=== PATIENT | male | born 1935 | race Caucasian/White ===

== ENCOUNTER 2016-09-22 08:01 | Inpatient (IN) | payer OTHER ==
[~2016-09-22] VITALS: Ht 189.2 cm; Wt 105.2 kg
[2016-09-22 09:15] VITALS: BP 138/71
[2016-09-22] MEDS ORDERED: SENN-6 PO (10:26)
[2016-09-22] MEDS ORDERED: POTA20TA82 PO (10:26)
[2016-09-22] MEDS ORDERED: CARV3.122 PO (10:26)
[2016-09-22] MEDS ORDERED: ASPI-482 PO (10:26)
[2016-09-22] MEDS ORDERED: POLY17PO3 PO (10:26)
[2016-09-22] MEDS ORDERED: SPIR25TA3 PO (10:26)
[2016-09-22] MEDS ORDERED: IPRA4AER IH (10:26)
[2016-09-22] MEDS ORDERED: WARF5TAB7 PO ×4 (10:26)
[2016-09-22] MEDS ORDERED: CRESTOR20 MG PO (10:26)
[2016-09-22] MEDS ORDERED: CHOL5000 PO (10:26)
[2016-09-22] MEDS ORDERED: LACT1TAB11 PO (10:26)
[2016-09-22] MEDS ORDERED: AMMO225L5 TP (10:26)
[2016-09-22] MEDS ORDERED: ACET325T9 PO (10:26)
[2016-09-22] MEDS ORDERED: CARB1DRO12 OP (10:26)
[2016-09-22] MEDS ORDERED: CHLO473M MM (10:26)
[2016-09-22] MEDS ORDERED: MELA3TAB PO (10:26)
[2016-09-22] MEDS ORDERED: PRAM56OI TP (10:26)
[2016-09-22] MEDS ORDERED: FINA5TAB4 PO (10:26)
[2016-09-22] MEDS ORDERED: ESCI5TAB24 PO (10:26)
[2016-09-22] MEDS ORDERED: FURO40TA4 PO ×2 (10:26)
[2016-09-22 11:00] VITALS: BP 129/66
[2016-09-22] MEDS ORDERED: MORPHINE SULFATE 2 MG/ML DISP.SYRIN. IV PRN (14:00)
[2016-09-22] MEDS ORDERED: 0.9 % SODIUM CHLORIDE 10 ML DISP.SYRIN. IV PRN (14:00)
[2016-09-22] MEDS ORDERED: PRAMOXINE 1% RECTAL FOAM 15GM CAN. TP PRN (14:15)
[2016-09-22] MEDS ORDERED: POLYVINYL ALCOHOL 1.4% OPHTH SOLUTION 15ML BOTTLE. OU PRN (14:15)
[2016-09-22] MEDS: AMMONIUM LACTATE 12% TP SCH (14:15)
[2016-09-22 15:00] VITALS: BP 115/54
[2016-09-22] MEDS: METOCLOPRAMIDE HCL 10 MG/2 ML VIAL. IV SCH ×2 (15:23→22:12)
[2016-09-22] MEDS: FUROSEMIDE 20 MG/2 ML VIAL IVP SCH (15:23)
[2016-09-22] MEDS: ENOXAPARIN ** NOTE DOSE ** SYRINGE SQ SCH ×2 (15:23→20:41)
[2016-09-22] MEDS: POTASSIUM CL 20MEQ-0.45% NACL 1,000 ML IV SCH (15:24)
[2016-09-22 15:39] LABS: BASO % 1 % (0-3); EOS % 1 % (0-3); HEMATOCRIT 37.7 % (39.0-53.0); HEMOGLOBIN 12.3 g/dL (13.0-17.5); LYMPH % 13 % (24-48); MEAN CORPUSCULAR HEMOGLOBIN 28 pg (25-35); MEAN CORPUSCULAR HGB CONC 33 g/dL (31-37); MEAN CORPUSCULAR VOLUME 84 fL (79-100); MONO % 16 % (0-9); NEUT % 69 % (31-73); PLATELET COUNT 196 x10^3/uL (140-400); RED BLOOD COUNT 4.46 x10^6/uL (4.30-5.70); RED CELL DISTRIBUTION WIDTH 18.3 % (11.5-14.5); WHITE BLOOD COUNT 7.7 x10^3/uL (4.0-11.0)
[2016-09-22 16:13] LABS: ALBUMIN 3.4 g/dL (3.4-5.0); CALCIUM 9.6 mg/dL (8.5-10.1); CREATININE 0.9 mg/dL (0.7-1.3); GFR 81.2; MAGNESIUM 2.1 mg/dL (1.8-2.4); POTASSIUM 3.8 mmol/L (3.5-5.1); TOTAL BILIRUBIN 1.1 mg/dL (0.2-1.0); TOTAL PROTEIN 6.9 g/dL (6.4-8.2)
--- NOTE | 2016-09-22 16:15 | HP ---
ADMIT DATE: 09/22/2016 CHIEF COMPLAINT: Small-bowel obstruction. HISTORY OF PRESENT ILLNESS: The patient is an 81-year-old gentleman who recently actually had been admitted at for a minimally invasive valve replacement complicated by CHF and other issues of stretching the hospitalization to several months. He has been doing well at home until this morning, in the wee hours, he actually presented with a severe abdominal pain in the periumbilical to the left lower quadrant area. The pain was so severe. He could not sit. He reports it as cramping. He finally called his daughter who took him to the [facility] The CT there revealed at least partial small-bowel obstruction and he was therefore referred to this hospital for a surgical followup. The patient relates that he did not eat anything unusual. He does have an abdominal history of diverticulitis, status post partial colectomy as well as hernia mesh repair for an umbilical hernia. He denies any recent fevers or chills. Denies any diarrhea. He did have some nausea and no emesis. Abdominal pain now is much improved, but still present. PAST MEDICAL HISTORY: (? Mitral) valve replacement last year at , minimally invasive CHF. The patient denies any history of heart attack or stent placements. Hypertension, hyperlipidemia, he is on Coumadin since valve replacement. PAST SURGICAL HISTORY: Partial colectomy for diverticulitis, hernia repair, foot surgery after traumatic muscle rupture. FAMILY HISTORY: Positive for heart disease in father. SOCIAL HISTORY: Lives with his . Quit smoking 9 months ago and accumulated a 95-mpmq-[id number] history. No alcohol or drug use. ALLERGIES: BACITRACIN, LISINOPRIL, NEOMYCIN, POLYMYXIN. MEDICATIONS: MAR reviewed. The patient currently n.p.o. REVIEW OF SYSTEMS: As per HPI. Abdominal pain actually has significantly improved. Did have a bowel movement yesterday, has not had any flatus since the pain started. The rest of organ system review was negative. PHYSICAL EXAMINATION: VITAL SIGNS: From today show a blood pressure of 138/71, heart rate of 79, respiratory rate at 20. He is afebrile. GENERAL: This is an 81-year-old well-nourished gentleman, alert and oriented, in no acute distress. HEENT: Shows no scleral icterus. NECK: Supple. LUNGS: Clear anteriorly. HEART: Has regular rate and rhythm without any murmurs. ABDOMEN: Obese, positive bowel sounds, mild tenderness to palpation in the periumbilical to the left lower quadrant area. No masses palpable. EXTREMITIES: Show trace edema. No clubbing or cyanosis. SKIN: Warm, soft and dry. Chronic venous stasis changes, mild in both lower extremities. LABORATORY DATA: Pending. ASSESSMENT AND PLAN: The patient is an 81-year-old gentleman who presented to an outlying facility with at least partial small-bowel obstruction by a clinical exam as well as radiographic findings. NG has been placed since. He feels much improved. I discussed with him and his daughter that we would await further development with bowel rest. He will be started on IV fluids to that end. This will have to be monitored closely, given his history of CHF. We will switch Lasix to IV rather than p.o. As soon as we have indications that he has adequate movement in his bowel, we will try and discontinue the NG tube. We will await other clinical signs including flatus and/or bowel movement. He does have a significant recent heart history, but details are unknown. We will try and get records from . Continue home medications as possible switch essential to IV. The patient is on oral anticoagulation since his heart surgery, presumably for valve placement and CHF. We will switch to Lovenox therapeutic doses for now. TONO CANDELARIO MD DR: CARROLL/nts JOB#: [id number] / [id number] TEGAN
[2016-09-22] MEDS: IPRATRPIUM/ALBUTEROL 0.5/2.5MG 3 ML NEBU. NEB SCH ×2 (16:26→20:05)
[2016-09-22] MEDS: ANTI-COAG MONITOR BY PHARMACY. MC PRN (16:45)
[2016-09-22] MEDS ORDERED: NON FORMULARY ITEM (Ipratropium/Albuterol Sulfate (Combivent Respimat Inhal) 1 INH) IH SCH (17:00)
[2016-09-22] MEDS: METOPROLOL TARTRATE 5 MG/5 ML VIAL. IVP SCH (17:31)
[2016-09-22 19:00] VITALS: BP 125/64
[2016-09-22] MEDS: CHLORHEXIDINE 0.12% 15 ML MOUTHWASH. MM SCH (20:41)
[2016-09-22 23:00] VITALS: BP 127/72
[2016-09-23] VITALS (7 sets, daily range): BP systolic 121–147; BP diastolic 59–72
[2016-09-23] MEDS: METOPROLOL TARTRATE 5 MG/5 ML VIAL. IVP SCH ×2 (00:26→06:27)
[2016-09-23] MEDS: POTASSIUM CL 20MEQ-0.45% NACL 1,000 ML IV SCH ×2 (00:27→09:51)
[2016-09-23] MEDS: METOCLOPRAMIDE HCL 10 MG/2 ML VIAL. IV SCH ×3 (06:27→21:40)
[2016-09-23] MEDS: IPRATRPIUM/ALBUTEROL 0.5/2.5MG 3 ML NEBU. NEB SCH ×4 (07:22→18:09)
[2016-09-23 08:56] LABS: BASO % 1 % (0-3); EOS % 4 % (0-3); HEMATOCRIT 38.1 % (39.0-53.0); HEMOGLOBIN 12.5 g/dL (13.0-17.5); LYMPH # 1.7 x10^3/uL (1.0-4.8); LYMPH % 24 % (24-48); MEAN CORPUSCULAR HEMOGLOBIN 28 pg (25-35); MEAN CORPUSCULAR HGB CONC 33 g/dL (31-37); MEAN CORPUSCULAR VOLUME 85 fL (79-100); MONO % 12 % (0-9); NEUT % 60 % (31-73); PLATELET COUNT 178 x10^3/uL (140-400); RED BLOOD COUNT 4.48 x10^6/uL (4.30-5.70); RED CELL DISTRIBUTION WIDTH 18.4 % (11.5-14.5); WHITE BLOOD COUNT 7.3 x10^3/uL (4.0-11.0)
[2016-09-23 09:09] LABS: INR 1.7 (0.8-1.1); PROTHROMBIN TIME PATIENT 18.9 SEC (11.7-14.0)
[2016-09-23] MEDS: FUROSEMIDE 20 MG/2 ML VIAL IVP SCH (09:29)
[2016-09-23] MEDS: CHLORHEXIDINE 0.12% 15 ML MOUTHWASH. MM SCH (09:29)
[2016-09-23] MEDS: AMMONIUM LACTATE 12% TP SCH (09:29)
[2016-09-23] MEDS: ENOXAPARIN ** NOTE DOSE ** SYRINGE SQ SCH ×2 (09:30→21:40)
[2016-09-23 10:41] LABS: CREATININE 0.8 mg/dL (0.7-1.3); POTASSIUM 3.7 mmol/L (3.5-5.1)
[2016-09-23] MEDS: IV NORMAL SALINE 1000ML BAG 1,000 ML IV SCH (11:23)
[2016-09-23] MEDS: ANTI-COAG MONITOR BY PHARMACY. MC PRN (12:17)
--- NOTE | 2016-09-23 12:36 | PDOC ---
PROGRESS NOTES Chief Complaint Chief Complaint CC: Abd pain 1. Small bowel obstruction 2. H/o diverticulitis - s/p partial colectomy 3. s/p umbilical hernia repair 4. CHF 5. Mitral valve replacement 6. HTN 7. HLD History of Present Illness History of Present Illness Pt sitting in chair NG placed and clamped - will discontinue today Pt had BM yesterday Has been passing gas Pt says his abd pain has subsided Pt complained of IVF causing burning sensation - will from KCl/NaCl to NS VSS DW RN Vitals Vitals Vital Signs Date Time Temp Pulse Resp B/P Pulse Ox O2 Delivery O2 Flow Rate FiO2 09/23/16 12:00 95 Room Air 09/23/16 11:00 97.7 88 20 146/67 97.7 Physical Exam General: Alert, Oriented X3 Heart: Normal S1, Normal S2 Lungs: Clear, Other (No wheezing) Abdomen: Soft, No tenderness Extremities: No clubbing, Normal pulses Skin: No rashes, No breakdown Labs LABS Laboratory Tests Test 09/22/16 15:30 09/22/16 20:30 09/23/16 07:34 09/23/16 07:54 White Blood Count 7.7x10^3/uL (4.0-11.0) 7.3x10^3/uL (4.0-11.0) Red Blood Count 4.46x10^6/uL (4.30-5.70) 4.48x10^6/uL (4.30-5.70) Hemoglobin 12.3g/dL (13.0-17.5) 12.5g/dL (13.0-17.5) Hematocrit 37.7% (39.0-53.0) 38.1% (39.0-53.0) Mean Corpuscular Volume 84fL (79-100) 85fL (79-100) Mean Corpuscular Hemoglobin 28pg (25-35) 28pg (25-35) Mean Corpuscular Hemoglobin Concent 33g/dL (31-37) 33g/dL (31-37) Red Cell Distribution Width 18.3% (11.5-14.5) 18.4% (11.5-14.5) Platelet Count 196x10^3/uL (140-400) 178x10^3/uL (140-400) Neutrophils (%) (Auto) 69% (31-73) 60% (31-73) Lymphocytes (%) (Auto) 13% (24-48) 24% (24-48) Monocytes (%) (Auto) 16% (0-9) 12% (0-9) Eosinophils (%) (Auto) 1% (0-3) 4% (0-3) Basophils (%) (Auto) 1% (0-3) 1% (0-3) Neutrophils # (Auto) 5.3x10^3uL (1.8-7.7) 4.4x10^3uL (1.8-7.7) Lymphocytes # (Auto) 1.0x10^3/uL (1.0-4.8) 1.7x10^3/uL (1.0-4.8) Monocytes # (Auto) 1.2x10^3/uL (0.0-1.1) 0.9x10^3/uL (0.0-1.1) Eosinophils # (Auto) 0.1x10^3/uL (0.0-0.7) 0.3x10^3/uL (0.0-0.7) Basophils # (Auto) 0.0x10^3/uL (0.0-0.2) 0.0x10^3/uL (0.0-0.2) Sodium Level 142mmol/L (136-145) 141mmol/L (136-145) Potassium Level 3.8mmol/L (3.5-5.1) 3.7mmol/L (3.5-5.1) Chloride Level 103mmol/L (98-107) 104mmol/L (98-107) Carbon Dioxide Level 32mmol/L (21-32) 29mmol/L (21-32) Anion Gap 7 (6-14) 8 (6-14) Blood Urea Nitrogen 20mg/dL (8-26) 18mg/dL (8-26) Creatinine 0.9mg/dL (0.7-1.3) 0.8mg/dL (0.7-1.3) Estimated GFR (Cockcroft-Gault) 81.2 93.0 BUN/Creatinine Ratio 22 (6-20) Glucose Level 127mg/dL (70-99) 123mg/dL (70-99) Calcium Level 9.6mg/dL (8.5-10.1) 9.0mg/dL (8.5-10.1) Magnesium Level 2.1mg/dL (1.8-2.4) Total Bilirubin 1.1mg/dL (0.2-1.0) Aspartate Amino Transf (AST/SGOT) 21U/L (15-37) Alanine Aminotransferase (ALT/SGPT) 21U/L (16-63) Alkaline Phosphatase 88U/L (46-116) Total Protein 6.9g/dL (6.4-8.2) Albumin 3.4g/dL (3.4-5.0) Albumin/Globulin Ratio 1.0 (1.0-1.7) Thyroid Stimulating Hormone (TSH) 0.839uIU/mL (0.358-3.74) Glucose (Fingerstick) 126mg/dL (70-99) 113mg/dL (70-99) Prothrombin Time 18.9SEC (11.7-14.0) Prothromb Time International Ratio 1.7 (0.8-1.1) Test 09/23/16 11:54 Glucose (Fingerstick) 177mg/dL (70-99) Review of Systems Review of Systems Complains of fatigue Complains of weakness Assessment and Plan Assessmemt and Plan Problems Medical Problems: (1) SBO (small bowel obstruction) Status: Acute Assessment: CC: Abd pain 1. Small bowel obstruction 2. H/o diverticulitis - s/p partial colectomy 3. s/p umbilical hernia repair 4. CHF 5. Mitral valve replacement 6. HTN 7. HLD Plan: Consult GI Remove NG tube Switch IVF from KCl/NaCl to NS PTOT Repeat labs Continue home meds Problems: Comment Review of Relevant I have reviewed the following items zelalem (where applicable) has been applied. Labs Laboratory Tests Test 09/22/16 11:00 09/22/16 15:30 09/22/16 20:30 09/23/16 07:34 Nasal Screen MRSA (PCR) Negative (Negative) White Blood Count 7.7x10^3/uL (4.0-11.0) Red Blood Count 4.46x10^6/uL (4.30-5.70) Hemoglobin 12.3g/dL (13.0-17.5) Hematocrit 37.7% (39.0-53.0) Mean Corpuscular Volume 84fL (79-100) Mean Corpuscular Hemoglobin 28pg (25-35) Mean Corpuscular Hemoglobin Concent 33g/dL (31-37) Red Cell Distribution Width 18.3% (11.5-14.5) Platelet Count 196x10^3/uL (140-400) Neutrophils (%) (Auto) 69% (31-73) Lymphocytes (%) (Auto) 13% (24-48) Monocytes (%) (Auto) 16% (0-9) Eosinophils (%) (Auto) 1% (0-3) Basophils (%) (Auto) 1% (0-3) Neutrophils # (Auto) 5.3x10^3uL (1.8-7.7) Lymphocytes # (Auto) 1.0x10^3/uL (1.0-4.8) Monocytes # (Auto) 1.2x10^3/uL (0.0-1.1) Eosinophils # (Auto) 0.1x10^3/uL (0.0-0.7) Basophils # (Auto) 0.0x10^3/uL (0.0-0.2) Sodium Level 142mmol/L (136-145) Potassium Level 3.8mmol/L (3.5-5.1) Chloride Level 103mmol/L (98-107) Carbon Dioxide Level 32mmol/L (21-32) Anion Gap 7 (6-14) Blood Urea Nitrogen 20mg/dL (8-26) Creatinine 0.9mg/dL (0.7-1.3) Estimated GFR (Cockcroft-Gault) 81.2 BUN/Creatinine Ratio 22 (6-20) Glucose Level 127mg/dL (70-99) Calcium Level 9.6mg/dL (8.5-10.1) Magnesium Level 2.1mg/dL (1.8-2.4) Total Bilirubin 1.1mg/dL (0.2-1.0) Aspartate Amino Transf (AST/SGOT) 21U/L (15-37) Alanine Aminotransferase (ALT/SGPT) 21U/L (16-63) Alkaline Phosphatase 88U/L (46-116) Total Protein 6.9g/dL (6.4-8.2) Albumin 3.4g/dL (3.4-5.0) Albumin/Globulin Ratio 1.0 (1.0-1.7) Thyroid Stimulating Hormone (TSH) 0.839uIU/mL (0.358-3.74) Glucose (Fingerstick) 126mg/dL (70-99) 113mg/dL (70-99) Test 09/23/16 07:54 09/23/16 11:54 White Blood Count 7.3x10^3/uL (4.0-11.0) Red Blood Count 4.48x10^6/uL (4.30-5.70) Hemoglobin 12.5g/dL (13.0-17.5) Hematocrit 38.1% (39.0-53.0) Mean Corpuscular Volume 85fL (79-100) Mean Corpuscular Hemoglobin 28pg (25-35) Mean Corpuscular Hemoglobin Concent 33g/dL (31-37) Red Cell Distribution Width 18.4% (11.5-14.5) Platelet Count 178x10^3/uL (140-400) Neutrophils (%) (Auto) 60% (31-73) Lymphocytes (%) (Auto) 24% (24-48) Monocytes (%) (Auto) 12% (0-9) Eosinophils (%) (Auto) 4% (0-3) Basophils (%) (Auto) 1% (0-3) Neutrophils # (Auto) 4.4x10^3uL (1.8-7.7) Lymphocytes # (Auto) 1.7x10^3/uL (1.0-4.8) Monocytes # (Auto) 0.9x10^3/uL (0.0-1.1) Eosinophils # (Auto) 0.3x10^3/uL (0.0-0.7) Basophils # (Auto) 0.0x10^3/uL (0.0-0.2) Prothrombin Time 18.9SEC (11.7-14.0) Prothromb Time International Ratio 1.7 (0.8-1.1) Sodium Level 141mmol/L (136-145) Potassium Level 3.7mmol/L (3.5-5.1) Chloride Level 104mmol/L (98-107) Carbon Dioxide Level 29mmol/L (21-32) Anion Gap 8 (6-14) Blood Urea Nitrogen 18mg/dL (8-26) Creatinine 0.8mg/dL (0.7-1.3) Estimated GFR (Cockcroft-Gault) 93.0 Glucose Level 123mg/dL (70-99) Calcium Level 9.0mg/dL (8.5-10.1) Glucose (Fingerstick) 177mg/dL (70-99) Laboratory Tests Test 09/22/16 15:30 09/22/16 20:30 09/23/16 07:34 09/23/16 07:54 White Blood Count 7.7x10^3/uL (4.0-11.0) 7.3x10^3/uL (4.0-11.0) Red Blood Count 4.46x10^6/uL (4.30-5.70) 4.48x10^6/uL (4.30-5.70) Hemoglobin 12.3g/dL (13.0-17.5) 12.5g/dL (13.0-17.5) Hematocrit 37.7% (39.0-53.0) 38.1% (39.0-53.0) Mean Corpuscular Volume 84fL (79-100) 85fL (79-100) Mean Corpuscular Hemoglobin 28pg (25-35) 28pg (25-35) Mean Corpuscular Hemoglobin Concent 33g/dL (31-37) 33g/dL (31-37) Red Cell Distribution Width 18.3% (11.5-14.5) 18.4% (11.5-14.5) Platelet Count 196x10^3/uL (140-400) 178x10^3/uL (140-400) Neutrophils (%) (Auto) 69% (31-73) 60% (31-73) Lymphocytes (%) (Auto) 13% (24-48) 24% (24-48) Monocytes (%) (Auto) 16% (0-9) 12% (0-9) Eosinophils (%) (Auto) 1% (0-3) 4% (0-3) Basophils (%) (Auto) 1% (0-3) 1% (0-3) Neutrophils # (Auto) 5.3x10^3uL (1.8-7.7) 4.4x10^3uL (1.8-7.7) Lymphocytes # (Auto) 1.0x10^3/uL (1.0-4.8) 1.7x10^3/uL (1.0-4.8) Monocytes # (Auto) 1.2x10^3/uL (0.0-1.1) 0.9x10^3/uL (0.0-1.1) Eosinophils # (Auto) 0.1x10^3/uL (0.0-0.7) 0.3x10^3/uL (0.0-0.7) Basophils # (Auto) 0.0x10^3/uL (0.0-0.2) 0.0x10^3/uL (0.0-0.2) Sodium Level 142mmol/L (136-145) 141mmol/L (136-145) Potassium Level 3.8mmol/L (3.5-5.1) 3.7mmol/L (3.5-5.1) Chloride Level 103mmol/L (98-107) 104mmol/L (98-107) Carbon Dioxide Level 32mmol/L (21-32) 29mmol/L (21-32) Anion Gap 7 (6-14) 8 (6-14) Blood Urea Nitrogen 20mg/dL (8-26) 18mg/dL (8-26) Creatinine 0.9mg/dL (0.7-1.3) 0.8mg/dL (0.7-1.3) Estimated GFR (Cockcroft-Gault) 81.2 93.0 BUN/Creatinine Ratio 22 (6-20) Glucose Level 127mg/dL (70-99) 123mg/dL (70-99) Calcium Level 9.6mg/dL (8.5-10.1) 9.0mg/dL (8.5-10.1) Magnesium Level 2.1mg/dL (1.8-2.4) Total Bilirubin 1.1mg/dL (0.2-1.0) Aspartate Amino Transf (AST/SGOT) 21U/L (15-37) Alanine Aminotransferase (ALT/SGPT) 21U/L (16-63) Alkaline Phosphatase 88U/L (46-116) Total Protein 6.9g/dL (6.4-8.2) Albumin 3.4g/dL (3.4-5.0) Albumin/Globulin Ratio 1.0 (1.0-1.7) Thyroid Stimulating Hormone (TSH) 0.839uIU/mL (0.358-3.74) Glucose (Fingerstick) 126mg/dL (70-99) 113mg/dL (70-99) Prothrombin Time 18.9SEC (11.7-14.0) Prothromb Time International Ratio 1.7 (0.8-1.1) Test 09/23/16 11:54 Glucose (Fingerstick) 177mg/dL (70-99) Medications Current Medications Sodium Chloride 3 ml 3 ml PRN DAILY PRN IV AFTER MEDS AND BLOOD DRAWS; Start at 14:00 Potassium Chloride/Sodium Chloride (KCl 20 Meq-0.45% Nacl) 1,000 ml @ 100 mls/ hr Q10H IV Last administered on 09/23/16 00:27; Start 09/22/16 at 13:51; Stop 09/23/16 at 10:40; Status DC Morphine Sulfate 1 mg PRN Q1HR PRN IV PAIN; Start 09/22/16 at 14:00 Lactic Acid (Lac-Hydrin) 1 sabas DAILY TP Last administered on 09/23/16 09:29; Start 09/22/16 at 14:15 Chlorhexidine Gluconate (Peridex) 15 ml BID MM Last administered on 09/23/16 09:29; Start 09/22/16 at 21:00; Stop 09/23/16 at 12:16; Status DC Artificial Tears (Artificial Tears) 2 drop PRN QID PRN OU DRY EYE; Start at 14:15 Non-Formulary Medication 1 inh QID IH ; Start 09/22/16 at 17:00; Stop 09/22/16 at 17:00; Status DC Pramoxine HCl (Proctofoam) 1 sabas PRN QID PRN TP HEMORRHOIDS; Start 09/22/16 at 14:15 Metoprolol Tartrate (Lopressor) 2.5 mg Q6HRS IVP Last administered on 06:27; Start 09/22/16 at 18:00; Stop 09/23/16 at 11:32; Status DC Furosemide (Lasix) 20 mg DAILY IVP Last administered on 09/23/16 09:29; Start 09/22/16 at 15:00 Enoxaparin Sodium (Lovenox 100mg Syringe) 100 mg Q12HR SQ Last administered on 09/23/16 09:30; Start 09/22/16 at 14:30 Metoclopramide HCl (Reglan) 10 mg Q8HRS IV Last administered on 09/23/16 06:27 ; Start 09/22/16 at 14:00 Albuterol/ Ipratropium (Duoneb) 3 ml RTQID NEB Last administered on 09/23/16 11:59; Start 09/22/16 at 16:00 Info 1 each 1 each PRN DAILY PRN MC SEE COMMENTS Last administered on 12:17; Start 09/22/16 at 16:45 Sodium Chloride (Iv Sodium Chloride 0.9% 1000ml Bag) 1,000 ml @ 75 mls/hr [id number] IV Last administered on 09/23/16 11:23; Start 09/23/16 at 10:45 Carvedilol (Coreg) 3.125 mg BIDWMEALS PO ; Start 09/23/16 at 17:00 Active Scripts Active Reported Warfarin Sodium 5 Mg Tablet 1.5 Tab PO QTH Warfarin Sodium 5 Mg Tablet 1.5 Tab PO QTU Warfarin Sodium 5 Mg Tablet 2 Tab PO QSU Warfarin Sodium 5 Mg Tablet 2 Tab PO QMWFSA Spironolactone 25 Mg Tablet 1 Tab PO DAILY Crestor (Rosuvastatin Calcium) 20 Mg Tablet 1 Tab PO QHS Potassium Chloride 20 Meq Tablet.er 20 Meq PO DAILY Polyethylene Glycol 3350 17 Gm Powd.pack 17 Gm PO DAILY Melatonin 3 Mg Tablet 1 Tab PO QHS Acidophilus (Lactobacillus Acidophilus) 1 Each Tab.chew 1 Each PO PRN TID PRN Hemorrhoid 1%-12.5% Ointment (Pramoxine HCl/Zinc Oxide) 56 Gm Oint...g. 56 Gm TP PRN QID PRN Furosemide 40 Mg Tablet 1 Tab PO NOON Furosemide 40 Mg Tablet 2 Tab PO DAILY Finasteride 5 Mg Tablet 1 Tab PO DAILY Lexapro (Escitalopram Oxalate) 5 Mg Tablet 2.5 Mg PO DAILY Senna S Tablet (Sennosides/Docusate Sodium) 1 Each Tablet 2 Each PO BID Vitamin D3 (Cholecalciferol (Vitamin D3)) 5,000 Unit Capsule 5,000 Unit PO DAILY Chlorhexidine Gluconate 473 Ml Mouthwash 15 Ml MM BID Carvedilol 3.125 Mg Tablet 1 Tab PO BID Lubricant Eye Drops (Carboxymethylcellulose Sodium) 1 Each Droperette 2 Each OP PRN QID PRN Aspir 81 (Aspirin) 81 Mg Tablet.dr 81 Tab PO DAILY Ammonium Lactate 225 Gm Lotion 225 Gm TP DAILY Combivent Respimat Inhal (Ipratropium/Albuterol Sulfate) 4 Gm Aer.w.adap 1 Inh IH QID Tylenol (Acetaminophen) 325 Mg Tablet 2 Tab PO PRN Q6HRS PRN Vitals/I & O Vital Sign - Last 24 Hours 09/22/16 09/22/16 09/22/16 09/22/16 15:00 16:30 17:31 19:00 Temp 97.9 99.0 97.9 99.0 Pulse 78 78 77 Resp 20 20 B/P 115/54 115/54 125/64 Pulse Ox 95 95 96 O2 Delivery Room Air Room Air Room Air 09/22/16 09/22/16 09/22/16 09/23/16 20:00 20:07 23:00 00:26 Temp 98.6 98.6 Pulse 74 74 Resp 18 B/P 127/72 127/72 Pulse Ox 98 95 O2 Delivery Room Air Room Air Room Air 09/23/16 09/23/16 09/23/16 09/23/16 03:17 06:15 06:27 07:00 Temp 98.8 98.1 98.8 98.1 Pulse 82 94 94 63 Resp 18 20 B/P 121/72 135/63 135/63 147/59 Pulse Ox 94 95 O2 Delivery Room Air Room Air 09/23/16 09/23/16 09/23/16 09/23/16 07:23 07:55 11:00 12:00 Temp 97.7 97.7 Pulse 88 Resp 20 B/P 146/67 Pulse Ox 95 95 95 O2 Delivery Room Air Room Air Room Air Room Air Intake and Output 09/22/16 09/22/16 09/23/16 15:00 23:00 07:00 Intake Total 908 ml Output Total 100 ml 600 ml Balance -100 ml 308 ml JUANY BANDA III DO Sep 23, 2016 12:36
[2016-09-23] MEDS ORDERED: PRAMOXINE 1% RECTAL FOAM 15GM CAN. TP PRN (13:22)
[2016-09-23] MEDS: CARVEDILOL 3.125 MG TABLET PO SCH (17:34)
[2016-09-24] MEDS: IV NORMAL SALINE 1000ML BAG 1,000 ML IV SCH ×2 (00:24→12:51)
--- NOTE | 2016-09-24 01:08 | CONS ---
DATE OF CONSULTATION: 09/23/2016 CHIEF COMPLAINT: Abdominal pain, abnormal CT. HISTORY OF PRESENT ILLNESS: This is an 81-year-old gentleman who has not been here to [facility] in some time, but does have a history of some surgery on his knee here many years ago. He had a partial colon resection in the past for diverticulitis and has also had a hernia repair in his abdomen, but has never had what he describes as severe pain or blockage. He did have a problem with constipation once after eating peanuts requiring an Emergency Room visit, but was not admitted. He presents now with the most severe pain he has had in his lower abdomen, very crampy, severe, went to the [facility] yesterday, and had a CAT scan. This CAT scan showed mildly dilated loops of small bowel in the mid abdomen with normal nondilated distal ileum. He also had cholelithiasis, some atrophy of the pancreas and some granulomas in the liver and spleen. The feeling was this was a partial small-bowel obstruction. He was asked to come to this facility where he was admitted. He had nausea and vomiting with this severe pain, but now has improved. He went 24 hours without going to the bathroom, but then yesterday had a bowel movement and had another one today and feels much better. Normally, he has to take MiraLax daily for mild chronic constipation, but this does provide improvement. He denies any hematemesis, melena, hematochezia, fever or chills. PAST MEDICAL HISTORY: Valvular heart disease, hypertension, hyperlipidemia, diverticulosis with previous diverticulitis. PAST SURGICAL HISTORY: 1. Some sort of mitral valve surgery at last year. 2. Partial colectomy for diverticulitis. 3. Hernia repair. 4. Foot surgery. ALLERGIES: BACITRACIN, LISINOPRIL, NEOMYCIN AND POLYMYXIN. FAMILY HISTORY: Positive for heart disease, but negative for GI related disorders. SOCIAL HISTORY: He is . He is an ex-smoker, but has a 35-dyyq-mzwy smoking history. No alcohol, no illicit drug use. MEDICATIONS: At home include Coreg, vitamin D, escitalopram, finasteride, Lasix, probiotics, MiraLax, potassium, rosuvastatin, spironolactone and warfarin. REVIEW OF SYSTEMS: GENERAL: Abdominal pain, no fever or chills. HEENT: Denies headache or blurred vision. PULMONARY: Denies shortness of breath, productive cough. CARDIOVASCULAR: Denies chest pain. GENITOURINARY: Denies dysuria, hematuria. NEUROLOGIC: Denies seizures, paralysis. MUSCULOSKELETAL: Denies acute arthritis or arthralgias. PHYSICAL EXAMINATION: GENERAL: He is awake and alert. VITAL SIGNS: He is afebrile, blood pressure is 149/59, pulse 63, respirations 20. Pupils equal, round, reactive. He is anicteric. NECK: Supple. CHEST: Clear. HEART: Regular rate and rhythm. ABDOMEN: Bowel sounds are present, soft, nontender, no organomegaly or masses. RECTAL: Deferred. EXTREMITIES: No cyanosis, clubbing or edema. NEUROLOGIC: Alert and oriented. No gross deficits. LABORATORY DATA: Hemoglobin 12.3, white blood cell count 7700. Electrolytes are normal. INR is 1.7. CT scan from the [facility] as mentioned above. ASSESSMENT: Abdominal pain with likely partial small-bowel obstruction or ileus. Clinically improved in part related to bowel movement that he had today and yesterday. His nausea and vomiting have improved as well. No obvious triggers such as change in medications, other type of illness, so this could be just adhesions from his previous surgery, although he has not had this sort of severe event before. It is unclear about previous endoscopic studies, but none are warranted at this time. PLAN: 1. Advance diet. 2. Consider outpatient evaluation, possibly elective colonoscopy at some point in the future if he is willing and it has been appropriate period of time since his last procedure. SORIN ROSARIO MD DR: CHRIS/lima JOB#: [id number] / [id number]
[2016-09-24 03:09] VITALS: BP 122/66
[2016-09-24 05:43] LABS: BASO % 1 % (0-3); EOS % 2 % (0-3); HEMATOCRIT 35.6 % (39.0-53.0); HEMOGLOBIN 11.4 g/dL (13.0-17.5); LYMPH # 1.5 x10^3/uL (1.0-4.8); LYMPH % 18 % (24-48); MEAN CORPUSCULAR HEMOGLOBIN 28 pg (25-35); MEAN CORPUSCULAR HGB CONC 32 g/dL (31-37); MEAN CORPUSCULAR VOLUME 88 fL (79-100); MONO % 12 % (0-9); NEUT % 67 % (31-73); PLATELET COUNT 146 x10^3/uL (140-400); RED BLOOD COUNT 4.07 x10^6/uL (4.30-5.70); RED CELL DISTRIBUTION WIDTH 18.8 % (11.5-14.5); WHITE BLOOD COUNT 8.2 x10^3/uL (4.0-11.0)
[2016-09-24 05:52] LABS: INR 1.7 (0.8-1.1); PROTHROMBIN TIME PATIENT 18.6 SEC (11.7-14.0)
[2016-09-24] MEDS: METOCLOPRAMIDE HCL 10 MG/2 ML VIAL. IV SCH ×3 (05:55→22:42)
[2016-09-24 07:00] VITALS: BP 120/61
[2016-09-24] MEDS: IPRATRPIUM/ALBUTEROL 0.5/2.5MG 3 ML NEBU. NEB SCH ×4 (07:20→19:54)
[2016-09-24] MEDS: CARVEDILOL 3.125 MG TABLET PO SCH ×2 (08:27→17:14)
[2016-09-24] MEDS: FUROSEMIDE 20 MG/2 ML VIAL IVP SCH (08:27)
[2016-09-24] MEDS: ENOXAPARIN ** NOTE DOSE ** SYRINGE SQ SCH ×2 (08:28→22:42)
[2016-09-24] MEDS: POLYVINYL ALCOHOL 1.4% OPHTH SOLUTION 15ML BOTTLE. OU PRN ×3 (08:30→23:18)
[2016-09-24] MEDS: AMMONIUM LACTATE 12% TP SCH (08:30)
--- NOTE | 2016-09-24 09:32 | PDOC ---
PROGRESS NOTES Chief Complaint Chief Complaint CC: Abd pain A/P 1. Small bowel obstruction 2. H/o diverticulitis - s/p partial colectomy 3. s/p umbilical hernia repair 4. CHF 5. hx Mitral valve replacement 6. HTN 7. HLD Plan mild iv hydration advance diet as per GI clinically improving. running temp, monitor vitals labs reviwed. HTN stable. History of Present Illness History of Present Illness no complains passing flatus no fever no nausea. Vitals Vitals Vital Signs Date Time Temp Pulse Resp B/P Pulse Ox O2 Delivery O2 Flow Rate FiO2 09/24/16 08:27 81 122/66 09/24/16 07:20 96 Room Air 09/24/16 03:09 98.1 18 98.1 Physical Exam General: Alert, Oriented X3 Heart: Normal S1, Normal S2 Lungs: Clear, Other (No wheezing) Abdomen: Normal bowel sounds, Soft, No tenderness Extremities: No clubbing, Normal pulses Skin: No rashes, No breakdown Labs LABS Laboratory Tests Test 09/23/16 11:54 09/23/16 16:59 09/23/16 21:01 09/24/16 05:00 Glucose (Fingerstick) 177mg/dL (70-99) 102mg/dL (70-99) 114mg/dL (70-99) White Blood Count 8.2x10^3/uL (4.0-11.0) Red Blood Count 4.07x10^6/uL (4.30-5.70) Hemoglobin 11.4g/dL (13.0-17.5) Hematocrit 35.6% (39.0-53.0) Mean Corpuscular Volume 88fL (79-100) Mean Corpuscular Hemoglobin 28pg (25-35) Mean Corpuscular Hemoglobin Concent 32g/dL (31-37) Red Cell Distribution Width 18.8% (11.5-14.5) Platelet Count 146x10^3/uL (140-400) Neutrophils (%) (Auto) 67% (31-73) Lymphocytes (%) (Auto) 18% (24-48) Monocytes (%) (Auto) 12% (0-9) Eosinophils (%) (Auto) 2% (0-3) Basophils (%) (Auto) 1% (0-3) Neutrophils # (Auto) 5.5x10^3uL (1.8-7.7) Lymphocytes # (Auto) 1.5x10^3/uL (1.0-4.8) Monocytes # (Auto) 1.0x10^3/uL (0.0-1.1) Eosinophils # (Auto) 0.2x10^3/uL (0.0-0.7) Basophils # (Auto) 0.0x10^3/uL (0.0-0.2) Test 09/24/16 05:05 Prothrombin Time 18.6SEC (11.7-14.0) Prothromb Time International Ratio 1.7 (0.8-1.1) Assessment and Plan Assessmemt and Plan Problems Medical Problems: (1) SBO (small bowel obstruction) Status: Acute Problems: Comment Review of Relevant I have reviewed the following items zelalem (where applicable) has been applied. Labs Laboratory Tests Test 09/22/16 11:00 09/22/16 14:15 09/22/16 15:30 09/22/16 20:30 Nasal Screen MRSA (PCR) Negative (Negative) Clostridium difficile Toxin (PCR) Negative (Negative) White Blood Count 7.7x10^3/uL (4.0-11.0) Red Blood Count 4.46x10^6/uL (4.30-5.70) Hemoglobin 12.3g/dL (13.0-17.5) Hematocrit 37.7% (39.0-53.0) Mean Corpuscular Volume 84fL (79-100) Mean Corpuscular Hemoglobin 28pg (25-35) Mean Corpuscular Hemoglobin Concent 33g/dL (31-37) Red Cell Distribution Width 18.3% (11.5-14.5) Platelet Count 196x10^3/uL (140-400) Neutrophils (%) (Auto) 69% (31-73) Lymphocytes (%) (Auto) 13% (24-48) Monocytes (%) (Auto) 16% (0-9) Eosinophils (%) (Auto) 1% (0-3) Basophils (%) (Auto) 1% (0-3) Neutrophils # (Auto) 5.3x10^3uL (1.8-7.7) Lymphocytes # (Auto) 1.0x10^3/uL (1.0-4.8) Monocytes # (Auto) 1.2x10^3/uL (0.0-1.1) Eosinophils # (Auto) 0.1x10^3/uL (0.0-0.7) Basophils # (Auto) 0.0x10^3/uL (0.0-0.2) Sodium Level 142mmol/L (136-145) Potassium Level 3.8mmol/L (3.5-5.1) Chloride Level 103mmol/L (98-107) Carbon Dioxide Level 32mmol/L (21-32) Anion Gap 7 (6-14) Blood Urea Nitrogen 20mg/dL (8-26) Creatinine 0.9mg/dL (0.7-1.3) Estimated GFR (Cockcroft-Gault) 81.2 BUN/Creatinine Ratio 22 (6-20) Glucose Level 127mg/dL (70-99) Calcium Level 9.6mg/dL (8.5-10.1) Magnesium Level 2.1mg/dL (1.8-2.4) Total Bilirubin 1.1mg/dL (0.2-1.0) Aspartate Amino Transf (AST/SGOT) 21U/L (15-37) Alanine Aminotransferase (ALT/SGPT) 21U/L (16-63) Alkaline Phosphatase 88U/L (46-116) Total Protein 6.9g/dL (6.4-8.2) Albumin 3.4g/dL (3.4-5.0) Albumin/Globulin Ratio 1.0 (1.0-1.7) Thyroid Stimulating Hormone (TSH) 0.839uIU/mL (0.358-3.74) Glucose (Fingerstick) 126mg/dL (70-99) Test 09/23/16 07:34 09/23/16 07:54 09/23/16 11:54 09/23/16 16:59 Glucose (Fingerstick) 113mg/dL (70-99) 177mg/dL (70-99) 102mg/dL (70-99) White Blood Count 7.3x10^3/uL (4.0-11.0) Red Blood Count 4.48x10^6/uL (4.30-5.70) Hemoglobin 12.5g/dL (13.0-17.5) Hematocrit 38.1% (39.0-53.0) Mean Corpuscular Volume 85fL (79-100) Mean Corpuscular Hemoglobin 28pg (25-35) Mean Corpuscular Hemoglobin Concent 33g/dL (31-37) Red Cell Distribution Width 18.4% (11.5-14.5) Platelet Count 178x10^3/uL (140-400) Neutrophils (%) (Auto) 60% (31-73) Lymphocytes (%) (Auto) 24% (24-48) Monocytes (%) (Auto) 12% (0-9) Eosinophils (%) (Auto) 4% (0-3) Basophils (%) (Auto) 1% (0-3) Neutrophils # (Auto) 4.4x10^3uL (1.8-7.7) Lymphocytes # (Auto) 1.7x10^3/uL (1.0-4.8) Monocytes # (Auto) 0.9x10^3/uL (0.0-1.1) Eosinophils # (Auto) 0.3x10^3/uL (0.0-0.7) Basophils # (Auto) 0.0x10^3/uL (0.0-0.2) Prothrombin Time 18.9SEC (11.7-14.0) Prothromb Time International Ratio 1.7 (0.8-1.1) Sodium Level 141mmol/L (136-145) Potassium Level 3.7mmol/L (3.5-5.1) Chloride Level 104mmol/L (98-107) Carbon Dioxide Level 29mmol/L (21-32) Anion Gap 8 (6-14) Blood Urea Nitrogen 18mg/dL (8-26) Creatinine 0.8mg/dL (0.7-1.3) Estimated GFR (Cockcroft-Gault) 93.0 Glucose Level 123mg/dL (70-99) Calcium Level 9.0mg/dL (8.5-10.1) Test 09/23/16 21:01 09/24/16 05:00 09/24/16 05:05 Glucose (Fingerstick) 114mg/dL (70-99) White Blood Count 8.2x10^3/uL (4.0-11.0) Red Blood Count 4.07x10^6/uL (4.30-5.70) Hemoglobin 11.4g/dL (13.0-17.5) Hematocrit 35.6% (39.0-53.0) Mean Corpuscular Volume 88fL (79-100) Mean Corpuscular Hemoglobin 28pg (25-35) Mean Corpuscular Hemoglobin Concent 32g/dL (31-37) Red Cell Distribution Width 18.8% (11.5-14.5) Platelet Count 146x10^3/uL (140-400) Neutrophils (%) (Auto) 67% (31-73) Lymphocytes (%) (Auto) 18% (24-48) Monocytes (%) (Auto) 12% (0-9) Eosinophils (%) (Auto) 2% (0-3) Basophils (%) (Auto) 1% (0-3) Neutrophils # (Auto) 5.5x10^3uL (1.8-7.7) Lymphocytes # (Auto) 1.5x10^3/uL (1.0-4.8) Monocytes # (Auto) 1.0x10^3/uL (0.0-1.1) Eosinophils # (Auto) 0.2x10^3/uL (0.0-0.7) Basophils # (Auto) 0.0x10^3/uL (0.0-0.2) Prothrombin Time 18.6SEC (11.7-14.0) Prothromb Time International Ratio 1.7 (0.8-1.1) Laboratory Tests Test 09/23/16 11:54 09/23/16 16:59 09/23/16 21:01 09/24/16 05:00 Glucose (Fingerstick) 177mg/dL (70-99) 102mg/dL (70-99) 114mg/dL (70-99) White Blood Count 8.2x10^3/uL (4.0-11.0) Red Blood Count 4.07x10^6/uL (4.30-5.70) Hemoglobin 11.4g/dL (13.0-17.5) Hematocrit 35.6% (39.0-53.0) Mean Corpuscular Volume 88fL (79-100) Mean Corpuscular Hemoglobin 28pg (25-35) Mean Corpuscular Hemoglobin Concent 32g/dL (31-37) Red Cell Distribution Width 18.8% (11.5-14.5) Platelet Count 146x10^3/uL (140-400) Neutrophils (%) (Auto) 67% (31-73) Lymphocytes (%) (Auto) 18% (24-48) Monocytes (%) (Auto) 12% (0-9) Eosinophils (%) (Auto) 2% (0-3) Basophils (%) (Auto) 1% (0-3) Neutrophils # (Auto) 5.5x10^3uL (1.8-7.7) Lymphocytes # (Auto) 1.5x10^3/uL (1.0-4.8) Monocytes # (Auto) 1.0x10^3/uL (0.0-1.1) Eosinophils # (Auto) 0.2x10^3/uL (0.0-0.7) Basophils # (Auto) 0.0x10^3/uL (0.0-0.2) Test 09/24/16 05:05 Prothrombin Time 18.6SEC (11.7-14.0) Prothromb Time International Ratio 1.7 (0.8-1.1) Medications Current Medications Sodium Chloride 3 ml 3 ml PRN DAILY PRN IV AFTER MEDS AND BLOOD DRAWS; Start at 14:00 Potassium Chloride/Sodium Chloride (KCl 20 Meq-0.45% Nacl) 1,000 ml @ 100 mls/ hr Q10H IV Last administered on 09/23/16 00:27; Start 09/22/16 at 13:51; Stop 09/23/16 at 10:40; Status DC Morphine Sulfate 1 mg PRN Q1HR PRN IV PAIN; Start 09/22/16 at 14:00 Lactic Acid (Lac-Hydrin) 1 sabas DAILY TP Last administered on 09/24/16 08:30; Start 09/22/16 at 14:15 Chlorhexidine Gluconate (Peridex) 15 ml BID MM Last administered on 09/23/16 09:29; Start 09/22/16 at 21:00; Stop 09/23/16 at 12:16; Status DC Artificial Tears (Artificial Tears) 2 drop PRN QID PRN OU DRY EYE; Start at 14:15; Stop 09/23/16 at 13:22; Status DC Non-Formulary Medication 1 inh QID IH ; Start 09/22/16 at 17:00; Stop 09/22/16 at 17:00; Status DC Pramoxine HCl (Proctofoam) 1 sabas PRN QID PRN TP HEMORRHOIDS; Start 09/22/16 at 14:15; Stop 09/23/16 at 13:22; Status DC Metoprolol Tartrate (Lopressor) 2.5 mg Q6HRS IVP Last administered on 06:27; Start 09/22/16 at 18:00; Stop 09/23/16 at 11:32; Status DC Furosemide (Lasix) 20 mg DAILY IVP Last administered on 09/24/16 08:27; Start 09/22/16 at 15:00 Enoxaparin Sodium (Lovenox 100mg Syringe) 100 mg Q12HR SQ Last administered on 09/24/16 08:28; Start 09/22/16 at 14:30 Metoclopramide HCl (Reglan) 10 mg Q8HRS IV Last administered on 09/24/16 05:55 ; Start 09/22/16 at 14:00 Albuterol/ Ipratropium (Duoneb) 3 ml RTQID NEB Last administered on 09/24/16 07:20; Start 09/22/16 at 16:00 Info 1 each 1 each PRN DAILY PRN MC SEE COMMENTS Last administered on 12:17; Start 09/22/16 at 16:45 Sodium Chloride (Iv Sodium Chloride 0.9% 1000ml Bag) 1,000 ml @ 75 mls/hr [id number] IV Last administered on 09/24/16 00:24; Start 09/23/16 at 10:45 Carvedilol (Coreg) 3.125 mg BIDWMEALS PO Last administered on 09/24/16 08:27; Start 09/23/16 at 17:00 Artificial Tears (Artificial Tears) 2 drop PRN QID PRN OU DRY EYE Last administered on 09/24/16 08:30; Start 09/23/16 at 13:22 Pramoxine HCl (Proctofoam) 1 sabas PRN QID PRN TP HEMORRHOIDS; Start 09/23/16 at 13:22 Active Scripts Active Reported Warfarin Sodium 5 Mg Tablet 1.5 Tab PO QTH Warfarin Sodium 5 Mg Tablet 1.5 Tab PO QTU Warfarin Sodium 5 Mg Tablet 2 Tab PO QSU Warfarin Sodium 5 Mg Tablet 2 Tab PO QMWFSA Spironolactone 25 Mg Tablet 1 Tab PO DAILY Crestor (Rosuvastatin Calcium) 20 Mg Tablet 1 Tab PO QHS Potassium Chloride 20 Meq Tablet.er 20 Meq PO DAILY Polyethylene Glycol 3350 17 Gm Powd.pack 17 Gm PO DAILY Melatonin 3 Mg Tablet 1 Tab PO QHS Acidophilus (Lactobacillus Acidophilus) 1 Each Tab.chew 1 Each PO PRN TID PRN Hemorrhoid 1%-12.5% Ointment (Pramoxine HCl/Zinc Oxide) 56 Gm Oint...g. 56 Gm TP PRN QID PRN Furosemide 40 Mg Tablet 1 Tab PO NOON Furosemide 40 Mg Tablet 2 Tab PO DAILY Finasteride 5 Mg Tablet 1 Tab PO DAILY Lexapro (Escitalopram Oxalate) 5 Mg Tablet 2.5 Mg PO DAILY Senna S Tablet (Sennosides/Docusate Sodium) 1 Each Tablet 2 Each PO BID Vitamin D3 (Cholecalciferol (Vitamin D3)) 5,000 Unit Capsule 5,000 Unit PO DAILY Chlorhexidine Gluconate 473 Ml Mouthwash 15 Ml MM BID Carvedilol 3.125 Mg Tablet 1 Tab PO BID Lubricant Eye Drops (Carboxymethylcellulose Sodium) 1 Each Droperette 2 Each OP PRN QID PRN Aspir 81 (Aspirin) 81 Mg Tablet.dr 81 Tab PO DAILY Ammonium Lactate 225 Gm Lotion 225 Gm TP DAILY Combivent Respimat Inhal (Ipratropium/Albuterol Sulfate) 4 Gm Aer.w.adap 1 Inh IH QID Tylenol (Acetaminophen) 325 Mg Tablet 2 Tab PO PRN Q6HRS PRN Vitals/I & O Vital Sign - Last 24 Hours 09/23/16 09/23/16 09/23/16 09/23/16 11:00 12:00 15:00 15:19 Temp 97.7 98.1 97.7 98.1 Pulse 88 75 Resp 20 20 B/P 146/67 134/70 Pulse Ox 95 95 98 O2 Delivery Room Air Room Air Room Air Room Air 09/23/16 09/23/16 09/23/16 09/23/16 17:34 18:10 19:00 20:07 Temp 99.9 99.9 Pulse 75 86 Resp 18 B/P 134/70 141/70 Pulse Ox 97 96 O2 Delivery Room Air Room Air Room Air 09/23/16 09/24/16 09/24/16 09/24/16 23:31 03:09 07:20 08:27 Temp 100.0 98.1 100.0 98.1 Pulse 90 81 81 Resp 18 18 B/P 124/61 122/66 122/66 Pulse Ox 91 94 96 O2 Delivery Room Air Room Air Room Air Intake and Output 09/23/16 09/23/16 09/24/16 15:00 23:00 07:00 Intake Total 1145 ml 791 ml Output Total 600 ml 900 ml Balance -600 ml 1145 ml -109 ml CINDY ALTAMIRANO MD Sep 24, 2016 09:32
[2016-09-24 10:23] LABS: CALCIUM 8.5 mg/dL (8.5-10.1); CREATININE 0.7 mg/dL (0.7-1.3); GFR 108.5; POTASSIUM 3.7 mmol/L (3.5-5.1)
[2016-09-24 11:00] VITALS: BP 124/64
--- NOTE | 2016-09-24 12:19 | PDOC ---
Subjective: Subjective: No abd pain or n/v. Tolerating full liquids. Epistaxis and rectal bleeding this morning (red blood around stool, drops in toilet water) w/ possible rectal pain. H/o constipation w/ Miralax use - denies straining today. Objective: Vital Signs: Vital Signs Date Time Temp Pulse Resp B/P Pulse Ox O2 Delivery O2 Flow Rate FiO2 09/24/16 10:39 97 Room Air 09/24/16 08:27 81 122/66 09/24/16 07:00 98.3 18 98.3 Labs: Laboratory Tests Test 09/23/16 16:59 09/23/16 21:01 09/24/16 08:37 09/24/16 11:17 Glucose (Fingerstick) 102mg/dL (70-99) 114mg/dL (70-99) 197mg/dL (70-99) 86mg/dL (70-99) PE: GEN: NAD, in chair LUNGS: clear anteriorly HEART: S1S2 ABD: NABS, S/ND/NT NEURO/PSYCH: A & O 3 A/P: Abnormal [facility] at [facility], partial SBO -charts indicates mildly dilated loops of small bowel in mid abdomen, cholelithiasis, atrophy of the pancreas, granulomas in the liver and spleen -h/o partial colectomy for diverticulitis, h/o constipation Abd pain, n/v - resolved Rectal bleeding (?pain), epistaxis -h/o hemorrhoids -s/p heart valve repair previously on Coumadin, INR 1.7 -drift in Hgb from 12.5 to 11.4, C Diff neg -- Okay for GI soft. Has not been re-imaged here but clinically improved/resolved suspected partial SBO. Will review w/ Dr. [place] re: rectal bleeding. MADELYN FLAHERTY Sep 24, 2016 12:19
[2016-09-24] MEDS: ANTI-COAG MONITOR BY PHARMACY. MC PRN (13:22)
[2016-09-24 15:00] VITALS: BP 132/66
[2016-09-24 19:50] VITALS: BP 137/68
[2016-09-24 23:44] VITALS: BP 146/75
[2016-09-25] MEDS: IV NORMAL SALINE 1000ML BAG 1,000 ML IV SCH (01:43)
[2016-09-25 03:48] VITALS: BP 141/73
[2016-09-25 05:07] LABS: BASO # 0.1 x10^3/uL (0.0-0.2); BASO % 1 % (0-3); EOS % 6 % (0-3); HEMATOCRIT 33.7 % (39.0-53.0); HEMOGLOBIN 10.8 g/dL (13.0-17.5); LYMPH % 16 % (24-48); MEAN CORPUSCULAR HEMOGLOBIN 28 pg (25-35); MEAN CORPUSCULAR HGB CONC 32 g/dL (31-37); MEAN CORPUSCULAR VOLUME 88 fL (79-100); MONO % 12 % (0-9); NEUT % 66 % (31-73); PLATELET COUNT 122 x10^3/uL (140-400); RED BLOOD COUNT 3.85 x10^6/uL (4.30-5.70); RED CELL DISTRIBUTION WIDTH 18.5 % (11.5-14.5); WHITE BLOOD COUNT 6.5 x10^3/uL (4.0-11.0)
[2016-09-25 05:22] LABS: INR 1.5 (0.8-1.1); PROTHROMBIN TIME PATIENT 17.3 SEC (11.7-14.0)
[2016-09-25] MEDS: METOCLOPRAMIDE HCL 10 MG/2 ML VIAL. IV SCH ×2 (05:59→14:00)
[2016-09-25 07:00] VITALS: BP 143/66
[2016-09-25] MEDS: IPRATRPIUM/ALBUTEROL 0.5/2.5MG 3 ML NEBU. NEB SCH ×3 (07:37→15:23)
[2016-09-25] MEDS: AMMONIUM LACTATE 12% TP SCH (08:52)
[2016-09-25] MEDS: CARVEDILOL 3.125 MG TABLET PO SCH (08:53)
[2016-09-25] MEDS: ENOXAPARIN ** NOTE DOSE ** SYRINGE SQ SCH (08:53)
[2016-09-25] MEDS: FUROSEMIDE 20 MG/2 ML VIAL IVP SCH (08:53)
[2016-09-25 10:29] LABS: CALCIUM 8.7 mg/dL (8.5-10.1); CREATININE 0.7 mg/dL (0.7-1.3); GFR 108.5; POTASSIUM 4.1 mmol/L (3.5-5.1)
[2016-09-25 11:10] VITALS: BP 118/69
--- NOTE | 2016-09-25 13:17 | PDOC ---
Subjective: Subjective: Has a normal BM this morning w/o bleeding. Small nose bleed today. Eating well, no abd pain, no n/v. Objective: Vital Signs: Vital Signs Date Time Temp Pulse Resp B/P Pulse Ox O2 Delivery O2 Flow Rate FiO2 09/25/16 11:15 95 Room Air 09/25/16 11:10 98.6 79 18 118/69 98.6 Labs: Laboratory Tests Test 09/24/16 15:59 09/24/16 20:30 09/25/16 04:50 09/25/16 07:44 Glucose (Fingerstick) 120mg/dL 133mg/dL 123mg/dL White Blood Count 6.5x10^3/uL Red Blood Count 3.85x10^6/uL Hemoglobin 10.8g/dL Hematocrit 33.7% Mean Corpuscular Volume 88fL Mean Corpuscular Hemoglobin 28pg Mean Corpuscular Hemoglobin Concent 32g/dL Red Cell Distribution Width 18.5% Platelet Count 122x10^3/uL Neutrophils (%) (Auto) 66% Lymphocytes (%) (Auto) 16% Monocytes (%) (Auto) 12% Eosinophils (%) (Auto) 6% Basophils (%) (Auto) 1% Neutrophils # (Auto) 4.2x10^3uL Lymphocytes # (Auto) 1.0x10^3/uL Monocytes # (Auto) 0.8x10^3/uL Eosinophils # (Auto) 0.4x10^3/uL Basophils # (Auto) 0.1x10^3/uL Prothrombin Time 17.3SEC Prothromb Time International Ratio 1.5 Heparin Anti-Xa Act, Unfractionated 0.58IU/mL Sodium Level 144mmol/L Potassium Level 4.1mmol/L Chloride Level 108mmol/L Carbon Dioxide Level 27mmol/L Anion Gap 9 Blood Urea Nitrogen 10mg/dL Creatinine 0.7mg/dL Estimated GFR (Cockcroft-Gault) 108.5 Glucose Level 114mg/dL Calcium Level 8.7mg/dL Test 09/25/16 11:19 Glucose (Fingerstick) 104mg/dL PE: GEN: NAD LUNGS:clear anteriorly HEART: S1S2 ABD: NABS, S/ND/NT NEURO/PSYCH: A & O 3 A/P: Abnormal CT at [facility], partial SBO -chart indicates mildly dilated loops of small bowel in mid abdomen, cholelithiasis, atrophy of the pancreas, granulomas in the liver and spleen -h/o partial colectomy for diverticulitis, h/o constipation controlled w/ Miralax Abd pain, n/v - resolved Rectal bleeding - resolved -h/o hemorrhoids, s/p heart valve repair previously on Coumadin, INR now 1.5 -drift in Hgb from 12.5 to 11.4 to 10.8, C Diff neg -- Possible DC today. No further bleeding w/ stools per pt. Will advance to regular diet. Discussed continuing Miralax QD at home. MADELYN FLAHERTY Sep 25, 2016 13:16
[2016-09-25] MEDS: ANTI-COAG MONITOR BY PHARMACY. MC PRN (14:04)
[2016-09-25 15:15] VITALS: BP 141/73
--- NOTE | 2016-09-26 00:43 | DS ---
DATE OF DISCHARGE: 09/25/2016 DISCHARGE DIAGNOSES: 1. Partial small-bowel obstruction, resolved. 2. History of diverticulosis, status post partial colectomy. 3. History of umbilical hernia repair. 4. History of congestive heart failure. 5. History of mitral valve replacement. 6. Hypertension. 7. Hyperlipidemia. 8. History of atrial fibrillation, on warfarin. BRIEF HOSPITAL COURSE: An 81-year-old male patient admitted to the hospital for abdominal pain and small-bowel obstruction. He was evaluated by Gastroenterology. He was treated symptomatically with IV fluids and n.p.o. status. During hospitalization, his symptoms improved and he was started on a full liquid diet. Today, he is able to tolerate diet very well without any complications. The patient had abdominal CT ____; however, at this time, we do not order any images as the patient is clinically improved. The patient was on warfarin at home and it was held due to questionable history of rectal bleeding; however, the patient is on warfarin for AFib and during hospitalization, he was started on Lovenox. Today, his INR is 1.5; however, the patient was not taking his warfarin during hospitalization. Today, I discussed with the patient about risks, benefits and alternatives of Lovenox. I did ask him to continue Lovenox for total 4 more shots before he sees a physician at [facility], which will be scheduled for his INR and PT checkup. Script sent to pharmacy. The patient is provided education about his Lovenox shots. DISCHARGE EXAMINATION: GENERAL: Alert, oriented x 3. HEART: S1, S2 present. LUNGS: Anterior chest clear. ABDOMEN: Soft, nontender, no organomegaly. EXTREMITIES: No edema. DISCHARGE DISPOSITION: Home. DISCHARGE CONDITION: Stable. DISCHARGE FOLLOWUP: With [facility] on that is 09/27/2016, for INR and PT followup. DISCHARGE MEDICATIONS: New scripts Lovenox 100 mg subcutaneously b.i.d. 4 shots. Total time spent for discharge is 35 minutes for patient education, counseling and coordination of care. CINDY ALTAMIRANO MD DR: SETH/lima JOB#: [id number] / [id number] MTDD
== END 2016-09-25 15:55 | disposition home or self-care (01) | DRG 390 ==
LOC: 4 NORTH 09:22
PROVIDERS: ADMIT Internal Medicine Hematology & Oncology; ATTEND Internal Medicine Hematology & Oncology
DX: K56.60 Unspecified intestinal obstruction (principal); E78.5 Hyperlipidemia, unspecified; I48.91 Unspecified atrial fibrillation; I11.0 Hypertensive heart disease with heart failure; K59.00 Constipation, unspecified; E66.9 Obesity, unspecified; K57.90 Diverticulosis of intestine, part unspecified, without perforation or abscess without bleeding; K80.20 Calculus of gallbladder without cholecystitis without obstruction; I50.9 Heart failure, unspecified; Z79.01 Long term (current) use of anticoagulants; Z87.891 Personal history of nicotine dependence; Z90.49 Acquired absence of other specified parts of digestive tract; Z95.2 Presence of prosthetic heart valve; Z88.1 Allergy status to other antibiotic agents; Z88.8 Allergy status to other drugs, medicaments and biological substances; Z68.29 Body mass index [BMI] 29.0-29.9, adult; D63.8 Anemia in other chronic diseases classified elsewhere
CPT/HCPCS: 36415; 80048; 80053; 82947; 83735; 84443; 85027; 85520; 85610; 87324; 87641; 94250; 94640; 94760; J1650; J2765; J3490; J7030; J7620